=== PATIENT | male | born 1950 | race Caucasian/White ===

== ENCOUNTER 2021-09-23 09:46 | Outpatient (CLI) | payer BC | END 2021-09-23 09:47 | disposition home or self-care (01) | LOC: CSHULT 09:46 | PROVIDERS: ATTEND Internal Medicine Gastroenterology | DX: K74.60 Unspecified cirrhosis of liver (principal) | CPT/HCPCS: 76705 ==

== ENCOUNTER 2022-03-24 10:40 | Outpatient (CLI) | payer BC ==
[2022-03-24] MEDS ORDERED: Magnevist 469MG/ML 20 ML VIAL ONE (11:49)
== END 2022-03-24 10:41 | disposition home or self-care (01) ==
LOC: CSHMRI 10:40
PROVIDERS: ATTEND Internal Medicine Gastroenterology
DX: K74.60 Unspecified cirrhosis of liver (principal); N28.1 Cyst of kidney, acquired; K82.8 Other specified diseases of gallbladder
CPT/HCPCS: 74183; 82565; A9579

== ENCOUNTER 2024-06-24 09:27 | Outpatient (CLI) | payer MEDICARE, OTHER ==
[2024-06-24] MEDS ORDERED: Magnevist 469MG/ML 20 ML VIAL ONE (11:29)
== END 2024-06-24 09:28 | disposition home or self-care (01) ==
LOC: CSHMRI 09:27
PROVIDERS: ATTEND Internal Medicine Gastroenterology
DX: K74.60 Unspecified cirrhosis of liver (principal); R16.1 Splenomegaly, not elsewhere classified; N28.1 Cyst of kidney, acquired
CPT/HCPCS: 74183